=== PATIENT | female | born 1985 | race Caucasian/White ===

== ENCOUNTER 2018-04-18 10:33 | Outpatient (CLI) | payer OTHER ==
[~2018-04-18] VITALS: Ht 162.6 cm; Wt 75.5 kg
[2018-04-18 10:49] VITALS: BP 120/61
== END 2018-04-18 12:07 | disposition home or self-care (01) ==
LOC: LDOP 10:33
PROVIDERS: ATTEND Obstetrics & Gynecology
DX: O26.893 Other specified pregnancy related conditions, third trimester (principal); R10.9 Unspecified abdominal pain; Z3A.37 37 weeks gestation of pregnancy
CPT/HCPCS: 59025; 99201; G0463

== ENCOUNTER 2018-04-30 20:16 | Inpatient (IN) | payer OTHER ==
[~2018-04-30] VITALS: Ht 162.6 cm; Wt 77.0 kg
[2018-04-30] MEDS ORDERED: OXYTOCIN 30U/ 0.9% NaCL 500ML 500 ML IV ONE (23:37)
[2018-04-30] MEDS ORDERED: D5%-LACTATED RINGERS 1,000 ML IV SCH (23:37)
[2018-04-30] MEDS ORDERED: OXYTOCIN 30U/ 0.9% NaCL 500ML 500 ML IV PRN (23:37)
[2018-05-01] MEDS ORDERED: FENTANYL PF 100 MCG/2ML IVPush PRN
[2018-05-01] MEDS ORDERED: SODIUM CITRATE/CITRIC ACID 30 ML UDC PO PRN
[2018-05-01] MEDS ORDERED: FENTANYL PF 100 MCG/2ML IV PRN
[2018-05-01] MEDS ORDERED: METOCLOPRAMIDE 5 MG/ML, 2ML IVPush PRN
[2018-05-01] MEDS ORDERED: CALCIUM CARBONATE 500 MG TAB.CHEW PO PRN
[2018-05-01] MEDS ORDERED: TERBUTALINE 1 MG/ML, 1ML IVPush PRN
[2018-05-01 00:08] LABS: BASOPHILS # (AUTO) 0.04 x10^3/uL (0-0.1); BASOPHILS % (AUTO) 0 % (0-1); EOSINOPHILS # (AUTO) 0.05 x10^3/uL (0-0.4); EOSINOPHILS % (AUTO) 0 % (1-7); LYMPHOCYTES # (AUTO) 3.36 x10^3/uL (1-3.4); LYMPHOCYTES % (AUTO) 25 % (22-44); MD NO; MEAN CORPUSCULAR HEMOGLOBIN 29.3 pg (27.0-34.8); MEAN CORPUSCULAR HGB CONC 33.2 g/dL (32.4-35.8); MEAN CORPUSCULAR VOLUME 88.2 fL (80-100); MEAN PLATELET VOLUME 9.4 fL (7.4-10.4); MONOCYTES # (AUTO) 0.88 x10^3/uL (0.2-0.8); MONOCYTES % (AUTO) 7 % (2-9); NEUTROPHILS # (AUTO) 9.23 x10^3/uL (1.8-6.8); NEUTROPHILS % (AUTO) 68 % (42-75); PLATELET COUNT 335 x10^3/uL (130-400); RED BLOOD COUNT 4.34 x10^6/uL (3.82-5.3); RED CELL DISTRIBUTION WIDTH 14.3 % (9.6-15.2)
[2018-05-01] MEDS ORDERED: OXYTOCIN 30U/ 0.9% NaCL 500ML 500 ML ONE (00:21)
[2018-05-01] MEDS ORDERED: NEWBORN KIT ONE (00:21)
[2018-05-01] MEDS ORDERED: MISOPROSTOL 200 MCG TABLET ONE (00:21)
[2018-05-01] MEDS ORDERED: LIDOCAINE/PF 1%, 30ML ONE (00:22)
[2018-05-01] MEDS ORDERED: CALCIUM CARBONATE 500 MG TAB.CHEW ONE (00:23)
[2018-05-01] MEDS: LACTATED RINGERS 1,000 ML IV SCH ×2 (01:37)
[2018-05-01] MEDS ORDERED: BUPIVACAINE/PF 0.25% ONE (01:39)
[2018-05-01] MEDS ORDERED: FENTANYL/BUPIV./NS/PF 250 ML EPIDCONT SCH ×2 (01:42→02:24)
[2018-05-01] MEDS ORDERED: LACTATED RINGERS 1,000 ML IV SCH ×2 (01:42→02:24)
[2018-05-01] MEDS ORDERED: LIDOCAINE/PF 1.5%-EPI 1:200K, 30ML ONE (01:52)
[2018-05-01] MEDS ORDERED: BUPIVACAINE 0.25% ONE (01:52)
[2018-05-01] MEDS ORDERED: FENTANYL/BUPIV./NS/PF 250 ML EPIDCONT ONE (01:52)
[2018-05-01] MEDS ORDERED: FENTANYL PF 500 MCG, BUPIVACAINE/PF 0.5%, 30ML 62.5 ML in SODIUM CHLORIDE 0.9% 177.5 ML EPIDCONT SCH (02:00)
[2018-05-01] MEDS ORDERED: LACTATED RINGERS 1,000 ML IVBOLUS PRN ×2 (02:00→02:30)
[2018-05-01] MEDS ORDERED: ONDANSETRON 2MG/ML, 2ML IVPush PRN ×2 (02:30)
[2018-05-01] MEDS ORDERED: DIPHENHYDRAMINE 50 MG/ML, 1ML IVPush PRN (02:30)
[2018-05-01] MEDS ORDERED: EPHEDRINE 50 MG/ML, 1ML IVPush PRN (02:30)
[2018-05-01] MEDS ORDERED: NALOXONE 0.4 MG/ML, 1ML IVPush PRN (02:30)
[2018-05-01] MEDS: OXYTOCIN 30U/ 0.9% NaCL 500ML 500 ML IV SCH ×2 (13:23→23:23)
[2018-05-01] MEDS ORDERED: MEASLES,MUMPS&RUBELLA VACC/PF 0.5 ML SQ-VACC PRN (13:30)
[2018-05-01] MEDS ORDERED: OXYcodone/APAP 5/325MG TABLET PO PRN ×2 (13:30)
[2018-05-01] MEDS ORDERED: DIPH,PERTUSS(ACELL),TET VAC/PF NC IM-VACC PRN (13:30)
[2018-05-01] MEDS ORDERED: ONDANSETRON 2MG/ML, 2ML IV PRN (13:30)
[2018-05-01] MEDS ORDERED: RHOGAM FROM BLOOD BANK 1 NOTE EA IM/IV ONE (13:30)
[2018-05-01] MEDS ORDERED: ACETAMINOPHEN 325 MG TABLET PO PRN (13:30)
[2018-05-01] MEDS ORDERED: METHYLERGONOVINE 0.2 MG/ML IM PRN (13:30)
[2018-05-01] MEDS ORDERED: MISOPROSTOL 200 MCG TABLET PR PRN (13:30)
[2018-05-01] MEDS ORDERED: CARBOPROST TROMETHAMINE 250 MCG/ML, 1ML IM PRN (13:30)
[2018-05-01] MEDS ORDERED: IBUPROFEN 600 MG TABLET ONE (15:12)
[2018-05-01] MEDS: IBUPROFEN 600 MG TABLET PO PRN ×2 (15:22→21:35)
[2018-05-01 17:00] VITALS: BP 105/70
[2018-05-01 19:15] VITALS: BP 113/54
[2018-05-01] MEDS: DOCUSATE 100 MG CAPSULE PO PRN (21:35)
[2018-05-01 23:14] LABS: MEAN CORPUSCULAR HEMOGLOBIN 29.1 pg (27.0-34.8); MEAN CORPUSCULAR VOLUME 88.3 fL (80-100); MEAN PLATELET VOLUME 9.2 fL (7.4-10.4); PLATELET COUNT 290 x10^3/uL (130-400); RED BLOOD COUNT 3.85 x10^6/uL (3.82-5.3); RED CELL DISTRIBUTION WIDTH 14.2 % (9.6-15.2)
[2018-05-01 23:33] LABS: MD YES
[2018-05-01 23:36] LABS: <PLATELET ESTIMATE> ADEQUATE; <RBC MORPHOLOGY> NORMAL; BAND#(MANUAL) 0.57 x10^3/uL; BANDS%(MANUAL) 3 % (0-7); EOS#(MANUAL) 0.57 x10^3/uL (0.0-0.4); EOS% (MANUAL) 3 % (1-7); LYMPH#(MANUAL) 3.06 x10^3/uL (1-3.4); LYMPHS% (MANUAL) 16 % (22-44); MONOS#(MANUAL) 0.57 x10^3/uL (0.3-2.7); MONOS% (MANUAL) 3 % (2-9); SEG#(MANUAL) 14.33 x10^3/uL (1.8-6.8); SEGS% (MANUAL) 75 % (42-75)
[2018-05-01 23:37] LABS: LARGE PLATELETS 1+
[2018-05-02 01:10] VITALS: BP 109/71
[2018-05-02] MEDS: IBUPROFEN 600 MG TABLET PO PRN ×3 (04:44→16:55)
[2018-05-02 08:00] VITALS: BP 110/68
[2018-05-02] MEDS ORDERED: PRENATAL VIT/IRON/FA 1 EACH TABLET PO SCH (09:00)
[2018-05-02] MEDS: DOCUSATE 100 MG CAPSULE PO PRN (09:03)
[2018-05-02] MEDS: OXYTOCIN 30U/ 0.9% NaCL 500ML 500 ML IV SCH (09:23)
[2018-05-02 12:00] VITALS: BP 114/74
[2018-05-02] MEDS ORDERED: IBUP-1222 PO (13:07)
== END 2018-05-02 17:50 | disposition home or self-care (01) | DRG 775 ==
LOC: LDOP 20:16 → LDIP 23:48 → 2NW 05-01 15:42
PROVIDERS: ADMIT Obstetrics & Gynecology; ATTEND Obstetrics & Gynecology
PROC: 10E0XZZ Delivery of Products of Conception, External Approach (ICD-10-PCS; principal; 2018-04-30)
PROC: 3E0R3BZ Introduction of Anesthetic Agent into Spinal Canal, Percutaneous Approach (ICD-10-PCS; 2018-04-30)
PROC: 00HU33Z Insertion of Infusion Device into Spinal Canal, Percutaneous Approach (ICD-10-PCS; 2018-04-30)
DX: O70.9 Perineal laceration during delivery, unspecified (principal); Z3A.39 39 weeks gestation of pregnancy; Z37.0 Single live birth
CPT/HCPCS: 36415; J7121; 85025; 86850; 86900; J3490; J2590; J3010; J7120